=== PATIENT | female | born 1995 | race Caucasian/White ===

== ENCOUNTER 2016-10-19 08:33 | Emergency (ER) | payer OTHER ==
[2016-10-19] MEDS ORDERED: Sodium Chloride 0.9% 1,000 ML IV STA (09:10)
[2016-10-19 09:22] LABS: BASO # 0.1 K/uL (0.0-0.2); BASO % 0.5 % (0.0-2.0); EOS # 0.1 K/uL (0.0-0.7); EOS % 0.8 % (0.0-4.0); HEMATOCRIT 41.7 % (34.0-47.0); LYMPH # 1.3 K/uL (1.0-4.3); LYMPH % 11.7 % (20.0-40.0); MEAN CELL VOLUME 86.7 fL (81.0-99.0); MEAN CORPUSCULAR HEMOGLOBIN 29.7 pg (27.0-31.0); MEAN CORPUSCULAR HGB CONC 34.2 g/dL (33.0-37.0); MEAN PLATELET VOLUME 9.6 fL (7.2-11.7); MONO # 0.2 K/uL (0.0-0.8); NRBC % 0.1 % (0.0-2.0); RED CELL DISTRIBUTION WIDTH 13.4 % (11.5-14.5); WHITE BLOOD COUNT 11.3 K/uL (4.8-10.8)
[2016-10-19 09:31] LABS: CHLORIDE 101 mmol/L (98-107); POTASSIUM 3.7 mmol/L (3.6-5.2); SODIUM 136 mmol/L (132-148)
[2016-10-19 09:33] LABS: ALB/GLOB RATIO 1.4 (1.0-2.1); BILIRUBIN,TOTAL 0.8 mg/dL (0.2-1.3); CARBON DIOXIDE 21 mmol/L (22-30); CHOLESTEROL 123 mg/dL (0-199); GFR AFRICAN-AMERICAN > 60
[2016-10-19 09:34] LABS: ALKALINE PHOSPHATASE 76 U/L (38-126); ALT/SGPT 48 U/L (9-52); AST/SGOT 26 U/L (14-36); BLOOD UREA NITROGEN 9 mg/dL (7-17); CALCIUM 8.8 mg/dl (8.6-10.4); GLUCOSE,RANDOM 102 mg/dL (65-105)
[2016-10-19] MEDS ORDERED: Sodium Chloride 0.9% 1,000 ML ONE (09:39)
[2016-10-19 09:41] LABS: RBC URINE 1 /hpf (0-3); URINE BILIRUBIN NEGATIVE (NEGATIVE); URINE BLOOD NEGATIVE (NEGATIVE); URINE COLOR Yellow (YELLOW); URINE GLUCOSE (UA) NORMAL (Normal); URINE KETONE TRACE mg/dL (NEGATIVE); URINE LEUKOCYTE ESTERASE NEG Leu/uL (Negative); URINE PROTEIN NEGATIVE (NEGATIVE); URINE UROBILINOGEN NORMAL mg/dL (0.2-1.0); WBC URINE 2 /hpf (0-5)
[2016-10-19 10:04] LABS: THYROID STIMULATING HORMONE 1.13 mIU/L (0.46-4.68)
--- NOTE | 2016-10-19 10:20 | RAD ---
HISTORY: fever, generalized pain COMPARISON: None available. TECHNIQUE: Chest PA and lateral FINDINGS: LUNGS: No focal consolidation. PLEURA: No significant pleural effusion identified. No definite pneumothorax . CARDIOVASCULAR: The cardiomediastinal silhouette appears within normal limits of size. OSSEOUS STRUCTURES: No acute osseous abnormality identified. VISUALIZED UPPER ABDOMEN: Unremarkable. OTHER FINDINGS: None. IMPRESSION: No focal consolidation, significant pleural effusion, or definite pneumothorax identified.
--- NOTE | 2016-10-19 10:47 | CT ---
PROCEDURE: CT HEAD WITHOUT CONTRAST. HISTORY: headache, shaking, b/l LE numbness COMPARISON: None available. TECHNIQUE: Axial computed tomography images were obtained through the head/brain without intravenous contrast. Radiation dose: Total exam DLP = 942.48 mGy-cm. This CT exam was performed using one or more of the following dose reduction techniques: Automated exposure control, adjustment of the mA and/or kV according to patient size, and/or use of iterative reconstruction technique. FINDINGS: HEMORRHAGE: No intracranial hemorrhage. BRAIN: No mass effect or edema. No atrophy or chronic microvascular ischemic changes.Please note that MRI with diffusion imaging is more sensitive in the detection of acute ischemic event. VENTRICLES: No hydrocephalus. CALVARIUM: Unremarkable. PARANASAL SINUSES: Unremarkable as visualized. No significant inflammatory changes. MASTOID AIR CELLS: Unremarkable as visualized. No inflammatory changes. OTHER FINDINGS: None. IMPRESSION: No acute intracranial pathology identified.
[2016-10-19 11:04] VITALS: O2SAT 99
--- NOTE | 2016-10-19 12:08 | C.PDOC ---
History Of Present Illness 21 year old female presents to the emergency department with complaints of headache with associated feelings of numbness and tingling to bilateral legs beginning yesterday morning. Patient states she feels blood is not circulating to her legs and went to Dr. Cleveland for evaluation yesterday. She was given a referral for blood work and denies any nausea, vomiting, or photophobia. Chief Complaint (Nursing): Headache History Per: Patient History/Exam Limitations: no limitations Onset/Duration Of Symptoms: Days (1 day ) Current Symptoms Are (Timing): Still Present Past Medical History Vital Signs: Last Vital Signs Temp 98.0 F 10/19/16 12:55 Pulse 72 10/19/16 12:55 Resp 16 10/19/16 12:55 BP 108/70 10/19/16 12:55 Pulse Ox 99 10/19/16 12:57 Family History: States: No Known Family Hx - Social History Hx Alcohol Use: No Hx Substance Use: No - Immunization History Hx Tetanus Toxoid Vaccination: No Hx Influenza Vaccination: No Hx Pneumococcal Vaccination: No Review Of Systems Constitutional: Negative for: Fever (denies subjective fever but is febrile in the ED), Chills Physical Exam - Physical Exam Appears: Non-toxic, No Acute Distress, Other (Patient is febrile. She is anxious , hyperventalating ) Skin: Warm, Dry Head: Atraumatic, No Swelling, No Abrasion, No Laceration Eye(s): bilateral: Normal Inspection, PERRL, EOMI Ear(s): Bilateral: Normal Oral Mucosa: Moist Neck: Supple, Other (No meningeal signs) Chest: Symmetrical, No Deformity Cardiovascular: Rhythm Regular Respiratory: Normal Breath Sounds, No Rhonchi, No Wheezing Gastrointestinal/Abdominal: Soft, No Tenderness, No Distention, No Guarding, No Rebound Extremity: Normal ROM, No Tenderness, No Calf Tenderness, Capillary Refill ( good capillary refill, less than 2 seconds), No Deformity, No Swelling Pulses: Left Radial: Normal, Right Radial: Normal, Left Dorsalis Pedis: Normal, Right Dorsalis Pedis: Normal Neurological/Psych: Oriented x3, Normal Speech, Normal Cognition, Normal Cranial Nerves, Normal Motor, Normal Sensation, Normal Reflexes (strong reflexes in lower extremities ) Gait: Steady ED Course And Treatment - Laboratory Results Result Diagrams: 10/19/16 09:19 10/19/16 09:19 O2 Sat by Pulse Oximetry: 99 (room air ) - Radiology CXR: Viewed By Me, Read By Radiologist CXR Interpretation: Yes: No Acute Disease Nexus Criteria: Negative - CT Scan/US CT HEAD WITHOUT CONTRAST. Other Rad Studies (CT/US): Read By Radiologist, Radiology Report Reviewed CT/US Interpretation: HISTORY: headache, shaking, b/l LE numbness. COMPARISON : None available. TECHNIQUE: Axial computed tomography images were obtained through the head/brain without intravenous contrast. Radiation dose: Total exam DLP = 942.48 mGy-cm. This CT exam was performed using one or more of the following dose reduction techniques: Automated exposure control, adjustment of the mA and/or kV according to patient size, and/or use of iterative reconstruction technique. FINDINGS: HEMORRHAGE: No intracranial hemorrhage. BRAIN: No mass effect or edema. No atrophy or chronic microvascular ischemic changes.Please note that MRI with diffusion imaging is more sensitive in the detection of acute ischemic event. VENTRICLES: No hydrocephalus. CALVARIUM: Unremarkable. PARANASAL SINUSES: Unremarkable as visualized. No significant inflammatory changes. MASTOID AIR CELLS: Unremarkable as visualized. No inflammatory changes. OTHER FINDINGS: None. IMPRESSION: No acute intracranial pathology identified. Progress Note: Head CT and CXR were ordered. UA was performed and was normal. Patient was given IV fluids and Tylenol. On re-evaluation patient feels better and wants to be d/c home. Disposition - Disposition Referrals: Navid Cleveland MD [Staff Provider] - Disposition: HOME/ ROUTINE Disposition Time: 12:47 Condition: STABLE Additional Instructions: Follow up with your PMD within 1-2 days. Return to Ed if feel worse. Prescriptions: Acetaminophen/Butalbital/Caf [Fioricet] 1 tab PO TID PRN #20 tab PRN Reason: Headache Instructions: Paresthesia (ED), General Headache (ED) Forms: [employer] (Upper Sorbian) - Clinical Impression Clinical Impression: Headache, Hyperventilation - Scribe Statement The provider has reviewed the documentation as recorded by the Scribe Shey Salinas All medical record entries made by the Scribe were at my direction and personally dictated by me. I have reviewed the chart and agree that the record accurately reflects my personal performance of the history, physical exam, medical decision making, and the department course for this patient. I have also personally directed, reviewed, and agree with the discharge instructions and disposition.
[2016-10-19 13:03] VITALS: BP 108/70; PULSE 72; RESP 16; TEMP 98
== END 2016-10-19 13:04 | disposition home or self-care (01) ==
LOC: C.ER 08:33
DX: R51 Headache (principal); R06.4 Hyperventilation
CPT/HCPCS: 70450; 71020; 80053; 80061; 81001; 84439; 84443; 84703; 85025; 87040; 87086; 96360; 99285; G0480; J7040